=== PATIENT | female | born 1980 | race Caucasian/White ===

== ENCOUNTER 2018-07-27 19:13 | Emergency (ER) | payer OTHER, MEDICAID ==
[2018-07-27] MEDS ORDERED: Metoclopramide 10 MG/2 ML SDV IVPUSH ONE (20:33)
[2018-07-27] MEDS ORDERED: Acetaminophen 1,000 MG in Premix Bag 1 BAG IV ONE (20:33)
[2018-07-27] MEDS ORDERED: Ketorolac 30 MG/ML SDV IVPUSH ONE (20:33)
[2018-07-27] MEDS ORDERED: diphenhydrAMINE 50 MG/ML SDV IVPUSH ONE (20:34)
[2018-07-27] MEDS ORDERED: Sodium Chloride 0.9% 1,000 ML IV SCH (20:45)
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
== END 2018-07-27 22:20 | disposition home or self-care (01) ==
LOC: FB.ED 19:13
DX: G43.009 Migraine without aura, not intractable, without status migrainosus (principal); I73.00 Raynaud's syndrome without gangrene; M05.79 Rheumatoid arthritis with rheumatoid factor of multiple sites without organ or systems involvement; K02.9 Dental caries, unspecified; E66.01 Morbid (severe) obesity due to excess calories; Q79.6 Ehlers-Danlos syndromes; H20.9 Unspecified iridocyclitis; H93.12 Tinnitus, left ear; F45.8 Other somatoform disorders; I10 Essential (primary) hypertension; F17.210 Nicotine dependence, cigarettes, uncomplicated; Z91.018 Allergy to other foods; Z88.8 Allergy status to other drugs, medicaments and biological substances; Z79.899 Other long term (current) drug therapy
CPT/HCPCS: 70450; 70486; 96361; 96374; 96375; 99284; J0131; J1200; J1885; J2765; J7030

== ENCOUNTER 2018-08-02 19:47 | Emergency (ER) | payer MEDICAID, OTHER ==
[2018-08-02] MEDS ORDERED: Ketorolac 60 MG/2 ML SDV IM ONE (19:58)
[2018-08-02] MEDS ORDERED: Aspirin 81 MG Tab.Chew PO ONE (19:58)
--- NOTE | 2018-08-02 19:59 | EDM.PDOC ---
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 Pt could not sleep for 10 days. She was diagnosed with sleep apnea a few years ago but was denied a CPAP machine by her insurance in [place]. Pt was seen recently in the ED for same, when her D Dimer was elevated. PE was ruled out at that time. No N/V/D no dizziness, no diaphoresis. Pt rated the chest pain as 10/10. Pt does smoke, but does not drink. Pt denies . Pt locates her pain at the middle of her chest, which is not radiating. Described the pain as burning. No other acute medical. BP 141/80 RR 20 Pulse ox 100% on RA Pulse 72 Temp 36.4 Onset Date: 08/01/18 Onset Time: 07:00 Duration: Intermittent Location: Reports: Chest Quality: Reports: Dull Severity: Moderate (10/10) Improves with: Reports: Rest Worsens with: Reports: Movement Context: Reports: Other (CAD risk factors) mid chest Pain Score (Numeric/FACES): 10 - Related Data Allergies Allergy/AdvReac Type Severity Reaction Status Date / Time baclofen Allergy Hives Verified 08/02/18 21:43 haloperidol [From Haldol] Allergy Hives Verified 08/02/18 21:43 iodamide Allergy Anaphylactic Verified 08/02/18 21:43 Shock lidocaine Allergy Blisters Verified 08/02/18 21:43 metformin Allergy Hypotension Verified 08/02/18 21:43 [email or web address] Allergy Anaphylactic Verified 08/02/18 21:43 [From Botox] Shock Home Meds: Home Meds Celecoxib [CeleBREX] 200 mg PO DAILY 05/25/18 [History] Cyanocobalamin (Vitamin B12) [Vitamin B12] 1,000 mg PO DAILY 05/25/18 [History] DULoxetine HCl [Cymbalta] 60 mg PO BID 05/25/18 [History] Ketorolac Tromethamine/Pf [Acuvail 0.45% Ophth Solution] 0.5 mg EYEBOTH QID 05/31 [History] Topiramate [Topamax] 125 mg PO 08 05/25/18 [History] cloNIDine [Catapres] 0.3 mg PO BID 05/25/18 [History] hydrOXYzine pamoate [Vistaril] 50 mg PO Q8HR PRN 05/25/18 [History] methylPREDNISolone Sod Succ [Solu-MEDROL] 4 mg PO ASDIRECTED 05/25/18 [History] tiZANidine HCl [Tizanidine HCl] 4 mg PO BID 05/25/18 [History] Pregabalin [Lyrica] 75 mg PO BID 06/12/18 [History] Topiramate 50 mg PO 12 06/12/18 [History] Topiramate 150 mg PO 21 06/12/18 [History] Past Medical History Cardiovascular History: Reports: Hypertension Gastrointestinal History: Reports: Other (See Below) (Cholecystectomy 2009) Genitourinary History: Reports: Other (See Below) (Hysterectomy one oophorectomy 2015) HEALTH SAFETY SPECIALIST History: Reports: Other HEALTH SAFETY SPECIALIST History: Musculoskeletal History: Reports: RA, Other (See Below) (Left arthroscopies with meniscectomy) Neurological History: Reports: Seizure Psychiatric History: Reports: Anxiety Endocrine/Metabolic History: Reports: Obesity/BMI 30+ Immunologic History: Reports: Immunosuppression Social & Family History - Family History Family Medical History: Noncontributory - Caffeine Use Caffeine Use: Reports: Energy Drinks, Soda - Living Situation & Occupation Living situation: Reports: ED ROS GENERAL - Review of Systems Review Of Systems: See Below Constitutional: Reports: Malaise, Weight Gain HEENT: Reports: No Symptoms Respiratory: Reports: Pleuritic Chest Pain Cardiovascular: Reports: Chest Pain Endocrine: Reports: No Symptoms GI/Abdominal: Reports: No Symptoms : Reports: No Symptoms Musculoskeletal: Reports: Muscle Pain Skin: Reports: No Symptoms Neurological: Reports: No Symptoms Psychiatric: Reports: No Symptoms Hematologic/Lymphatic: Reports: No Symptoms Immunologic: Reports: No Symptoms ED EXAM, GENERAL - Physical Exam Exam: See Below Exam Limited By: No Limitations General Appearance: Alert, Mild Distress, Obese (morbid obese) Eye Exam: Bilateral Eye: Normal Inspection Ears: Normal External Exam Ear Exam: Bilateral Ear: Auricle Normal Nose: Normal Inspection, Normal Mucosa, No Blood Throat/Mouth: Normal Lips, Normal Gums, Normal Voice, No Airway Compromise Head: Atraumatic, Normocephalic Neck: Normal Inspection, Supple, Non-Tender, Full Range of Motion Respiratory/Chest: No Respiratory Distress, Lungs Clear, Normal Breath Sounds, Chest Non-Tender Cardiovascular: Normal Peripheral Pulses, Regular Rate, Rhythm, No Edema, No Gallop, No JVD, No Murmur, No Rub Peripheral Pulses: 1+: Brachial (L) GI/Abdominal: Normal Bowel Sounds, Soft, Non-Tender, No Organomegaly, No Abnormal Bruit, No Mass, Pelvis Stable (Female) Exam: Deferred Rectal (Female) Exam: Deferred Back Exam: Normal Inspection, Full Range of Motion Extremities: Normal Inspection, Normal Range of Motion, Non-Tender, No Pedal Edema, Normal Capillary Refill Neurological: Alert, Oriented, CN II-XII Intact, Normal Cognition, Normal Gait, No Motor/Sensory Deficits Psychiatric: Normal Affect, Normal Mood Skin Exam: Warm, Dry, Intact, Normal Color, No Rash Lymphatic: No Adenopathy EKG INTERPRETATION EKG Date: 08/02/18 Time: 20:00 Rhythm: NSR Rate (Beats/Min): 70 [place]: Normal P-Wave: Present QRS: Normal ST-T: Normal QT: Normal Comparison: NA - No Prior EKG Course - Vital Signs Text/Narrative:: 38 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 Pt could not sleep for 10 days. She was diagnosed with sleep apnea a few years ago but was denied a CPAP machine by her insurance in [place]. Pt was seen recently in the ED for same, when her D Dimer was elevated. PE was ruled out at that time. No N/V/D no dizziness, no diaphoresis. Pt rated the chest pain as 10/10. Pt does smoke, but does not drink. Pt denies . Pt locates her pain at the middle of her chest, which is not radiating. Described the pain as burning. No other acute medical. BP 141/80 RR 20 Pulse ox 100% on RA Pulse 72 Temp 36.4 PE: Obese 38 y.o.w.f with Chest pain and epigastric pain Imaging: Not indicated Labs: D Dimer 0.5 CBC, BMP nl UDS pos for benzos and and THC products. Troponin 0.017 UHC < 0.1 Impression: Sleep apnea, morbid obesity, atypical chest pain. Insomnia Tx: ASA, Maalox, Toradol, NTG Reexam: 100% improved Plan: D/C with instructions Last Recorded V/S: Last Vital Signs Temp 36.4 C 08/02/18 19:50 Pulse 72 08/02/18 19:50 Resp 20 08/02/18 19:50 BP 141/80 H 08/02/18 19:50 Pulse Ox 100 08/02/18 19:50 - Orders/Labs/Meds Orders: Active Orders 24 hr Category Date Time Status EKG Documentation Completion [RC] ASDIRECTED Care 08/02/18 19:57 Active EKG 12 Lead [EK] Routine Ther 08/02/18 19:57 Ordered Labs: Laboratory Tests 08/02/18 08/02/18 08/02/18 Range/Units 20:20 20:20 20:20 WBC 12.7 H (4.5-12.0) X10-3/uL RBC 4.70 (3.23-5.20) x10(6)uL Hgb 13.6 (11.5-15.5) g/dL Hct 41.4 (30.0-51.3) % MCV 88.1 (80-96) fL MCH 28.9 (27.7-33.6) pg MCHC 32.8 (32.2-35.4) g/dL RDW 12.0 (11.5-15.5) % Plt Count 233 (125-369) X10(3)uL MPV 9.4 (7.4-10.4) fL Neut % (Auto) 61.0 (46-82) % Lymph % (Auto) 26.4 (13-37) % [place] % (Auto) 7.0 (4-12) % Eos % (Auto) 5 (1.0-5.0) % Baso % (Auto) 1 (0-2) % Neut # (Auto) 7.8 (1.6-8.3) # Lymph # (Auto) 3.3 (0.6-5.0) # [place] # (Auto) 0.9 (0.0-1.3) # Eos # (Auto) 0.6 (0.0-0.8) # Baso # (Auto) 0.1 (0.0-0.2) # D-Dimer, Quantitative (0.0-0.59) mg/LFEU Sodium 139 (135-145) mmol/L Potassium 3.9 (3.5-5.3) mmol/L Chloride 103 (100-110) mmol/L Carbon Dioxide 26 (21-32) mmol/L BUN 14 (7-18) mg/dL Creatinine 1.0 (0.55-1.02) mg/dL Est Cr Clr Drug Dosing TNP Estimated GFR (MDRD) > 60 (>60) BUN/Creatinine Ratio 14.0 (9-20) Glucose 100 (80-116) mg/dL Calcium 9.3 (8.6-10.2) mg/dL Troponin I < 0.017 L (<0.017-0.056) ng/mL HCG, Quant (<5) mIU/mL Urine Color (YELLOW) Urine Appearance (CLEAR) Urine pH (5.0-6.5) Ur Specific [place] (1.010-1.025) Urine Protein (NEGATIVE) mg/dL Urine Glucose (UA) (NEGATIVE) mg/dL Urine Ketones (NEGATIVE) mg/dL Urine Occult Blood (NEGATIVE) Urine Nitrite (NEGATIVE) Urine Bilirubin (NEGATIVE) Urine Urobilinogen (NEGATIVE) mg/dL Ur Leukocyte Esterase (NEGATIVE) Urine RBC (0) Urine WBC (0) Ur Squamous Epith Cells (NS,R,O) Amorphous Sediment Urine Bacteria (NS) Urine Opiates Screen (NEGATIVE) Ur Oxycodone Screen (NEGATIVE) Ur Propoxyphene Screen (NEGATIVE) Ur Barbituates Screen (NEGATIVE) Ur Tricyclics Screen (NEGATIVE) Ur Phencyclidine Scrn (NEGATIVE) Ur Amphetamine Screen (NEGATIVE) Urine MDMA Screen (NEGATIVE) U Benzodiazepines Scrn (NEGATIVE) U Cocaine Metab Screen (NEGATIVE) U Marijuana (THC) Screen (NEGATIVE) 08/02/18 08/02/18 08/02/18 Range/Units 20:20 20:20 21:15 WBC (4.5-12.0) X10-3/uL RBC (3.23-5.20) x10(6)uL Hgb (11.5-15.5) g/dL Hct (30.0-51.3) % MCV (80-96) fL MCH (27.7-33.6) pg MCHC (32.2-35.4) g/dL RDW (11.5-15.5) % Plt Count (125-369) X10(3)uL MPV (7.4-10.4) fL Neut % (Auto) (46-82) % Lymph % (Auto) (13-37) % [place] % (Auto) (4-12) % Eos % (Auto) (1.0-5.0) % Baso % (Auto) (0-2) % Neut # (Auto) (1.6-8.3) # Lymph # (Auto) (0.6-5.0) # [place] # (Auto) (0.0-1.3) # Eos # (Auto) (0.0-0.8) # Baso # (Auto) (0.0-0.2) # D-Dimer, Quantitative 0.35 (0.0-0.59) mg/LFEU Sodium (135-145) mmol/L Potassium (3.5-5.3) mmol/L Chloride (100-110) mmol/L Carbon Dioxide (21-32) mmol/L BUN (7-18) mg/dL Creatinine (0.55-1.02) mg/dL Est Cr Clr Drug Dosing Estimated GFR (MDRD) (>60) BUN/Creatinine Ratio (9-20) Glucose (80-116) mg/dL Calcium (8.6-10.2) mg/dL Troponin I (<0.017-0.056) ng/mL HCG, Quant < 1 L (<5) mIU/mL Urine Color Yellow (YELLOW) Urine Appearance Slightly cloudy (CLEAR) Urine pH 7.0 H (5.0-6.5) Ur Specific [place] 1.015 (1.010-1.025) Urine Protein Negative (NEGATIVE) mg/dL Urine Glucose (UA) Normal (NEGATIVE) mg/dL Urine Ketones Negative (NEGATIVE) mg/dL Urine Occult Blood Negative (NEGATIVE) Urine Nitrite Negative (NEGATIVE) Urine Bilirubin Negative (NEGATIVE) Urine Urobilinogen 1 H (NEGATIVE) mg/dL Ur Leukocyte Esterase Small H (NEGATIVE) Urine RBC 0-5 (0) Urine WBC 0-5 (0) Ur Squamous Epith Cells Moderate H (NS,R,O) Amorphous Sediment Moderate Urine Bacteria Rare H (NS) Urine Opiates Screen (NEGATIVE) Ur Oxycodone Screen (NEGATIVE) Ur Propoxyphene Screen (NEGATIVE) Ur Barbituates Screen (NEGATIVE) Ur Tricyclics Screen (NEGATIVE) Ur Phencyclidine Scrn (NEGATIVE) Ur Amphetamine Screen (NEGATIVE) Urine MDMA Screen (NEGATIVE) U Benzodiazepines Scrn (NEGATIVE) U Cocaine Metab Screen (NEGATIVE) U Marijuana (THC) Screen (NEGATIVE) 08/02/18 Range/Units 21:15 WBC (4.5-12.0) X10-3/uL RBC (3.23-5.20) x10(6)uL Hgb (11.5-15.5) g/dL Hct (30.0-51.3) % MCV (80-96) fL MCH (27.7-33.6) pg MCHC (32.2-35.4) g/dL RDW (11.5-15.5) % Plt Count (125-369) X10(3)uL MPV (7.4-10.4) fL Neut % (Auto) (46-82) % Lymph % (Auto) (13-37) % [place] % (Auto) (4-12) % Eos % (Auto) (1.0-5.0) % Baso % (Auto) (0-2) % Neut # (Auto) (1.6-8.3) # Lymph # (Auto) (0.6-5.0) # [place] # (Auto) (0.0-1.3) # Eos # (Auto) (0.0-0.8) # Baso # (Auto) (0.0-0.2) # D-Dimer, Quantitative (0.0-0.59) mg/LFEU Sodium (135-145) mmol/L Potassium (3.5-5.3) mmol/L Chloride (100-110) mmol/L Carbon Dioxide (21-32) mmol/L BUN (7-18) mg/dL Creatinine (0.55-1.02) mg/dL Est Cr Clr Drug Dosing Estimated GFR (MDRD) (>60) BUN/Creatinine Ratio (9-20) Glucose (80-116) mg/dL Calcium (8.6-10.2) mg/dL Troponin I (<0.017-0.056) ng/mL HCG, Quant (<5) mIU/mL Urine Color (YELLOW) Urine Appearance (CLEAR) Urine pH (5.0-6.5) Ur Specific [place] (1.010-1.025) Urine Protein (NEGATIVE) mg/dL Urine Glucose (UA) (NEGATIVE) mg/dL Urine Ketones (NEGATIVE) mg/dL Urine Occult Blood (NEGATIVE) Urine Nitrite (NEGATIVE) Urine Bilirubin (NEGATIVE) Urine Urobilinogen (NEGATIVE) mg/dL Ur Leukocyte Esterase (NEGATIVE) Urine RBC (0) Urine WBC (0) Ur Squamous Epith Cells (NS,R,O) Amorphous Sediment Urine Bacteria (NS) Urine Opiates Screen Negative (NEGATIVE) Ur Oxycodone Screen Negative (NEGATIVE) Ur Propoxyphene Screen Negative (NEGATIVE) Ur Barbituates Screen Negative (NEGATIVE) Ur Tricyclics Screen Negative (NEGATIVE) Ur Phencyclidine Scrn Negative (NEGATIVE) Ur Amphetamine Screen Negative (NEGATIVE) Urine MDMA Screen Negative (NEGATIVE) U Benzodiazepines Scrn Positive H (NEGATIVE) U Cocaine Metab Screen Negative (NEGATIVE) U Marijuana (THC) Screen Positive H (NEGATIVE) Meds: Medications Discontinued Medications Generic Name Dose Route Start Last Admin Trade Name Freq PRN Reason Stop Dose Admin Al Hydroxide/Mg Hydroxide 50 ml 08/02/18 22:23 08/02/18 22:29 Mag-Al Susp PO 08/02/18 22:24 50 ml ONETIME ONE Administration Aspirin 324 mg 08/02/18 19:58 08/02/18 20:14 Aspirin PO 08/02/18 19:59 324 mg ONETIME ONE Administration Sodium Chloride 1,000 mls @ 125 mls/hr 08/02/18 21:00 08/02/18 21:20 Normal Saline IV 125 mls/hr ASDIRECTED GERALD Administration Ketorolac Tromethamine 60 mg 08/02/18 19:58 08/02/18 20:12 Toradol IM 08/02/18 19:59 60 mg ONETIME ONE Administration Morphine Sulfate 4 mg 08/02/18 21:27 08/02/18 21:41 Morphine IVPUSH 08/02/18 21:28 Not Given ONETIME ONE Morphine Sulfate Confirm 08/02/18 21:34 08/02/18 22:04 Morphine Administered 08/02/18 21:35 Not Given Dose 4 mg .ROUTE .STK-MED ONE Morphine Sulfate 4 mg 08/02/18 21:36 08/02/18 21:37 Morphine IVPUSH 08/02/18 21:37 4 mg ONETIME ONE Administration Morphine Sulfate 2 mg 08/02/18 22:02 08/02/18 22:07 Morphine IVPUSH 08/02/18 22:03 2 mg ONETIME ONE Administration Nitroglycerin 1 gm 08/02/18 22:09 08/02/18 22:19 Nitro-Bid 2% TOP 08/02/18 22:10 1 gm ONETIME STA Administration Departure - Departure Time of Disposition: 23:10 Disposition: Home, Self-Care 01 Condition: Good Clinical Impression: Sleep apnea in adult, Morbid (severe) obesity due to excess calories, Atypical chest pain Referrals: 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 If you would find a pulm specialist would be best. Please come back if your symptoms get worse acutely. - My Orders Last 24 Hours: My Active Orders 08/02/18 19:57 EKG Documentation Completion [RC] ASDIRECTED EKG 12 Lead [EK] Routine - Assessment/Plan Last 24 Hours: My Active Orders 08/02/18 19:57 EKG Documentation Completion [RC] ASDIRECTED EKG 12 Lead [EK] Routine
[2018-08-02] MEDS ORDERED: Sodium Chloride 0.9% 1,000 ML IV SCH (21:00)
[2018-08-02] MEDS ORDERED: Morphine 4 MG/ML Syringe IVPUSH ONE (21:27)
[2018-08-02] MEDS ORDERED: Morphine 2 MG/ML Syringe ONE (21:34)
[2018-08-02] MEDS ORDERED: Morphine 2 MG/ML Syringe IVPUSH ONE ×2 (21:36→22:02)
[2018-08-02] MEDS ORDERED: Nitroglycerin 2% Oint 1 GM UD Packet TOP STA (22:09)
[2018-08-02] MEDS ORDERED: Aluminum Hydroxide/Magnesium Hydroxide Susp 30 ML Cup PO ONE (22:23)
== END 2018-08-02 23:18 | disposition home or self-care (01) ==
LOC: FB.ED 19:47
DX: R07.89 Other chest pain (principal); G47.00 Insomnia, unspecified; E66.01 Morbid (severe) obesity due to excess calories; I10 Essential (primary) hypertension; F17.210 Nicotine dependence, cigarettes, uncomplicated; F41.9 Anxiety disorder, unspecified; G47.30 Sleep apnea, unspecified; Z88.8 Allergy status to other drugs, medicaments and biological substances; Z79.899 Other long term (current) drug therapy; Z68.41 Body mass index [BMI] 40.0-44.9, adult
CPT/HCPCS: 36415; 80048; 80305; 81001; 84484; 84702; 85025; 85379; 93005; 96361; 96372; 96374; 96376; 99285; A9270; J1885; J2270; J7030

== ENCOUNTER 2018-11-15 09:18 | Emergency (ER) | payer OTHER ==
[2018-11-15] MEDS ORDERED: Aspirin 81 MG Tab.Chew PO ONE (09:30)
[2018-11-15] MEDS ORDERED: Morphine 2 MG/ML Syringe IVPUSH ONE (12:08)
[2018-11-15] MEDS ORDERED: Nitroglycerin 2% Oint 1 GM UD Packet TOP ONE (15:13)
--- NOTE | 2018-11-15 15:57 | US ---
INDICATION: Rule out DVT. DUPLEX ULTRASOUND, BILATERAL LOWER EXTREMITY VEINS: Utilizing 2-D real time, duplex Doppler spectral analysis and color flow imaging, examination of the right and left lower extremity veins, including the common femoral veins, proximal greater saphenous veins, proximal deep femoral veins, proximal femoral veins, mid femoral veins, distal femoral veins, popliteal veins, posterior tibial veins, anterior tibial veins, and peroneal veins, revealed no evidence of deep venous thrombosis or obstruction. Compression views showed no abnormal lack of compression to suggest thrombosis. No evidence of incompetence of the valves was identified. IMPRESSION: Duplex ultrasound, right and left lower extremity veins, shows no evidence of deep venous thrombosis or incompetence. Report was called to Coby Cortes DO at 1430 hours on 11/15/18. [facility]
--- NOTE | 2018-11-15 16:02 | CR ---
INDICATION: Chest pain. CHEST: Two AP upright views of the chest were obtained 11/15/18. Evidence of exogenous obesity is noted. The heart is not enlarged and appears similar to PA view of 05/25/18. A definite active infiltrate or effusion was not identified. Visualization is less than ideal with an AP view with this sized patient, however. PA and lateral views are recommended for further evaluation, therefore. Overlying EKG leads are noted. IMPRESSION: 1. No definite acute process. 2. Exogenous obesity. 3. PA and lateral views of the chest may be helpful. Report was given by phone to Dr. Cortes at approximately 1500 hours on 11/15/18. [facility]
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
[2018-11-15] MEDS ORDERED: Ondansetron 4 MG/2 ML SDV IVPUSH ONE (17:01)
[2018-11-15] MEDS ORDERED: Sodium Chloride 0.9% 10 ML Syringe FLUSH PRN (17:05)
== END 2018-11-15 17:17 ==
LOC: FB.ED 09:18
DX: R07.9 Chest pain, unspecified (principal); F17.210 Nicotine dependence, cigarettes, uncomplicated; I10 Essential (primary) hypertension; F41.9 Anxiety disorder, unspecified; D64.9 Anemia, unspecified; Z88.8 Allergy status to other drugs, medicaments and biological substances; Z88.1 Allergy status to other antibiotic agents; Z79.899 Other long term (current) drug therapy
CPT/HCPCS: 36415; 71045; 80053; 81001; 84484; 85025; 85379; 85610; 93005; 93970; 96374; 96375; 99285; A9270; J2270; J2405

== ENCOUNTER 2019-01-15 17:42 | Emergency (ER) | payer OTHER ==
[2019-01-15] MEDS ORDERED: Ketorolac 60 MG/2 ML SDV IM ONE (18:13)
[2019-01-15] MEDS ORDERED: Dexamethasone 4 MG/ML SDV IVPUSH STA (18:57)
[2019-01-15] MEDS ORDERED: Aluminum Hydroxide/Magnesium Hydroxide Susp 30 ML Cup PO STA (20:23)
--- NOTE | 2019-01-15 20:27 | EDM.PDOC ---
ED HPI GENERAL MEDICAL PROBLEM - General Chief Complaint: General Stated Complaint: ARTHRITIS PAIN Time Seen by Provider: 01/15/19 17:42 Source of Information: Reports: Patient, Family (SO) History Limitations: Reports: Physical Impairment - History of Present Illness INITIAL COMMENTS - FREE TEXT/NARRATIVE: 38 y.o.w.f with multiple medical issues, including Rheumatic arthritis, came to the ED C/O chronic shoulder pain shoulder pain, whic is getting worse. 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 No trauma. Pt has no PMD, has an appointment with a [facility] Finisher in January 27 in [place]. No physician would assistant center director narcotics. No SOB or chest pain. BP 137/64 RR 17 Pulse ox 100% on RA Pulse 73 Temp 36.9 Onset Date: 01/12/19 Onset Time: 07:00 Duration: Week(s):, Chronic, Intermittent Location: Reports: Upper Extremity, Left, Upper Extremity, Right, Generalized Quality: Reports: Ache, Burning, Dull, Pressure, Same as Previous Episode Severity: Moderate Improves with: Reports: None Worsens with: Reports: None Context: Reports: Other (multiple medical issues) Associated Symptoms: Reports: Other (multiple medical issues) knees, hip, shoulders, hands, elbows Pain Score (Numeric/FACES): 10 - Related Data Allergies Allergy/AdvReac Type Severity Reaction Status Date / Time baclofen Allergy Hives Verified 01/15/19 18:59 haloperidol [From Haldol] Allergy Hives Verified 01/15/19 18:59 iodamide Allergy Anaphylactic Verified 01/15/19 18:59 Shock lidocaine Allergy Blisters Verified 01/15/19 18:59 metformin Allergy Hypotension Verified 01/15/19 18:59 onabotulinumtoxinA Allergy Anaphylactic Verified 01/15/19 18:59 [From Botox] Shock Home Meds: Home Meds Topiramate [Topamax] 150 mg PO DAILY 05/25/18 [History] cloNIDine [Catapres] 0.3 mg PO BID 05/25/18 [History] hydrOXYzine pamoate [Vistaril] 50 mg PO TID 05/25/18 [History] tiZANidine HCl [Tizanidine HCl] 4 mg PO BID 05/25/18 [History] Pregabalin [Lyrica] 75 mg PO BID 06/12/18 [History] FLUoxetine [PROzac] 40 mg PO DAILY 11/16/18 [History] Celecoxib [CeleBREX] 200 mg PO DAILY 01/15/19 [History] Metoclopramide [Reglan] 5 mg PO BID 01/15/19 [History] PARoxetine [Paxil] 5 mg PO DAILY 01/15/19 [History] Pregabalin [Lyrica] 75 mg PO BID 01/15/19 [History] Propranolol [Inderal] 80 mg PO DAILY 01/15/19 [History] Past Medical History HEENT History: Reports: Other (See Below) Other HEENT History: tinnitis, UVitis Cardiovascular History: Reports: Hypertension, Other (See Below) Other Cardiovascular History: states that she was told that she has a heart attack but did not do anything about it. Gastrointestinal History: Reports: Other (See Below) Other Gastrointestinal History: polysplenia Genitourinary History: Reports: Urinary Incontinence BUSINESS STRATEGY MANAGER History: Reports: Other BUSINESS STRATEGY MANAGER History: Musculoskeletal History: Reports: Fracture, Osteoarthritis, RA, Other (See Below ) Other Musculoskeletal History: Acquired Demyelinating syndrome. Neurological History: Reports: Concussion, Migraines, Neuropathy, Peripheral, Seizure, TIA, Other (See Below) Other Neuro History: Arnold Chiari Malformation, states that she had many TIA's in the past. Psychiatric History: Reports: Anxiety, Panic Attack Other Psychiatric History: states that she has severe anxiety and she gets really violent as a reaction to haldol. Endocrine/Metabolic History: Reports: Obesity/BMI 30+ Hematologic History: Reports: Anemia, Iron Deficiency Immunologic History: Reports: Immunosuppression Other Dermatologic History: hx hydrodenitis suprateva - Infectious Disease History Infectious Disease History: Reports: Chicken Pox - Past Surgical History Cardiovascular Surgical History: Reports: None GI Surgical History: Reports: Cholecystectomy Female Surgical History: Reports: Hysterectomy, Salpingo-Oophorectomy, Tubal Ligation Other Female Surgeries/Procedures: hyst with 1 ovary removed. Musculoskeletal Surgical History: Reports: Arthroscopic Procedure Other Musculoskeletal Surgeries/Procedures:: L knee scope Social & Family History - Family History Family Medical History: Noncontributory Cardiac: Reports: CAD - Tobacco Use Smoking Status *Q: Current Every Day Smoker Years of Tobacco use: 6 Packs/Tins Daily: 1 - Caffeine Use Caffeine Use: Reports: Coffee Other Caffeine Use: states that she is not having coffee as much as she used to. - Recreational Drug Use Recreational Drug Type: Reports: Marijuana/Hashish, Other (see below) Other Recreational Drug Type: states that she is on medical marijuana that was advised by her PCP. States that it is not helping her at all but still on it upto this time. - Living Situation & Occupation Living situation: Reports: ED ROS GENERAL - Review of Systems Review Of Systems: See Below Constitutional: Reports: No Symptoms HEENT: Reports: No Symptoms Respiratory: Reports: No Symptoms Cardiovascular: Reports: No Symptoms Endocrine: Reports: No Symptoms GI/Abdominal: Reports: Abdominal Pain (chronic) : Reports: No Symptoms Musculoskeletal: Reports: Shoulder Pain (chronic), Muscle Pain (c) Skin: Reports: No Symptoms Neurological: Reports: No Symptoms Psychiatric: Reports: No Symptoms Hematologic/Lymphatic: Reports: No Symptoms Immunologic: Reports: No Symptoms ED EXAM, GENERAL - Physical Exam Exam: See Below Exam Limited By: Physical Impairment General Appearance: Obese (obese) Eye Exam: Bilateral Eye: Normal Inspection Ears: Normal External Exam Ear Exam: Bilateral Ear: Auricle Normal Nose: Normal Inspection, Normal Mucosa, No Blood Throat/Mouth: Normal Inspection, Normal Lips, Normal Voice, No Airway Compromise Head: Atraumatic, Normocephalic Neck: Normal Inspection, Supple, Non-Tender Respiratory/Chest: No Respiratory Distress, Lungs Clear, Normal Breath Sounds Cardiovascular: Normal Peripheral Pulses, Regular Rate, Rhythm, No Edema Peripheral Pulses: 2+: Brachial (L) GI/Abdominal: Normal Bowel Sounds, Soft, Tender (chronic GERARDO quadrat of abdomen) (Female) Exam: Deferred Rectal (Female) Exam: Deferred Back Exam: Normal Inspection Extremities: Normal Inspection, Limited Range of Motion (of shoulders, chronic) Neurological: Alert, Oriented, CN II-XII Intact, Normal Cognition, Normal Gait Psychiatric: Normal Affect, Normal Mood Skin Exam: Warm, Dry, Intact, Normal Color, No Rash Lymphatic: No Adenopathy Course - Vital Signs Text/Narrative:: 38 y.o.w.f with multiple medical issues, including Rheumatic arthritis, came to the ED C/O chronic shoulder pain shoulder pain, whic is getting worse. 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 No trauma. Pt has no PMD, has an appointment with a [facility] Finisher in January 27 in [place]. No physician would assistant center director narcotics. No SOB or chest pain. BP 137/64 RR 17 Pulse ox 100% on RA Pulse 73 Temp 36.9 PE: Morbid obese 38 y.o.w.f with worsening of chronic bilat shoulder pain, no trauma Labs/Imaging: Not indicated Impression: Multiple med issues, including chronic bilat shoulder pain with exacerbation Tx: Toradol, Decadron Reexam: Improved Plan: D/C with instructions Last Recorded V/S: Last Vital Signs Temp 36.9 C 01/15/19 18:00 Pulse 73 01/15/19 18:00 Resp 17 01/15/19 18:00 BP 137/64 01/15/19 18:00 Pulse Ox 100 01/15/19 18:00 - Orders/Labs/Meds Meds: Medications Discontinued Medications Generic Name Dose Route Start Last Admin Trade Name Freq PRN Reason Stop Dose Admin Al Hydroxide/Mg Hydroxide 30 ml 01/15/19 20:23 01/15/19 20:27 Mag-Al Susp PO 01/15/19 20:24 30 ml ONETIME STA Administration Dexamethasone 10 mg 01/15/19 18:57 01/15/19 19:12 Dexamethasone IVPUSH 01/15/19 18:58 10 mg ONETIME STA Administration Ketorolac Tromethamine 60 mg 01/15/19 18:13 01/15/19 18:22 Toradol IM 01/15/19 18:14 60 mg ONETIME ONE Administration Departure - Departure Time of Disposition: 20:26 Disposition: Home, Self-Care 01 Condition: Good Clinical Impression: Arthritis - Discharge Information Referrals: Patricia Chino NP [Primary Care Provider] - Forms: ED Department Discharge Additional Instructions: Please take your current meds, please f/u with your PMD, come back if your symptoms get worse acutely
== END 2019-01-15 20:38 | disposition home or self-care (01) ==
LOC: FB.ED 17:42
DX: I00 Rheumatic fever without heart involvement (principal); M25.512 Pain in left shoulder; M25.511 Pain in right shoulder; I10 Essential (primary) hypertension; F17.210 Nicotine dependence, cigarettes, uncomplicated; Z88.1 Allergy status to other antibiotic agents; Z79.899 Other long term (current) drug therapy
CPT/HCPCS: 96372; 96374; 99283; A9270; J1100; J1885

== ENCOUNTER 2019-05-27 19:43 | Emergency (ER) | payer MEDICAID, OTHER, SELFPAY ==
[2019-05-27] MEDS: hydrOXYzine HCl 50 MG/ML SDV IM ONE (20:14)
[2019-05-27] MEDS: Morphine 10 MG/ML SDV IM ONE (20:15)
--- NOTE | 2019-05-27 21:24 | ER ---
DATE SEEN: 05/27/2019 CHIEF COMPLAINT: Fall. HISTORY OF PRESENT ILLNESS: This is a 38-year-old female who fell yesterday at home and landed on the deck on her buttock and hit her head as well. Pain is in the back of the head, moderate to severe, along with pain in the lower back. She did not pass out. Pain has been uncontrolled today despite Tylenol and ibuprofen, which is now making her nauseous. PAST MEDICAL HISTORY: Jocelyn has a history of anxiety, obesity, depression, and rheumatoid arthritis that has been controlled previously. SOCIAL HISTORY: Noncontributory. REVIEW OF SYSTEMS: No chest pain. No vomiting. No visual disturbance. PHYSICAL EXAMINATION: GENERAL: She is not in distress. VITAL SIGNS: Normal. HEAD: Atraumatic. NECK: Supple. NEXUS Criteria negative. CHEST: Clear. LOWER BACK: There is tenderness in the lumbar spine and paraspinal muscles. EXTREMITIES: Moves extremities well. NEUROLOGIC: No focal deficits neurologically. IMPRESSION: 1. Recent fall. 2. Headache. 3. Back pain. PLAN: Morphine 10 mg IM and Vistaril 50 mg IM. I recommended ice, heat, ibuprofen, and followup in the office with PCP next week. /[id number]
== END 2019-05-27 20:34 | disposition home or self-care (01) ==
LOC: FB.ED 19:43
DX: R51 Headache (principal); M54.5 Low back pain; E66.9 Obesity, unspecified; W01.10XA Fall on same level from slipping, tripping and stumbling with subsequent striking against unspecified object, initial encounter; Y92.009 Unspecified place in unspecified non-institutional (private) residence as the place of occurrence of the external cause
CPT/HCPCS: 96372; 99284-25; J2270; J3410

== ENCOUNTER 2019-06-16 17:15 | Emergency (ER) | payer BC, MEDICAID ==
[2019-06-16] MEDS ORDERED: traMADol 50 MG Tab PO ONE (17:34)
[2019-06-16] MEDS ORDERED: Ketorolac 60 MG/2 ML SDV IM ONE (18:27)
--- NOTE | 2019-06-16 18:28 | EDM.PDOC ---
ED HPI GENERAL MEDICAL PROBLEM - General Chief Complaint: General Stated Complaint: IN PAIN, CHEST HURTS Time Seen by Provider: 06/16/19 17:20 Source of Information: Reports: Patient, Family History Limitations: Reports: No Limitations - History of Present Illness INITIAL COMMENTS - FREE TEXT/NARRATIVE: Jocelyn comes into [facility] ED with a 2 hour hx of headaches, some anterior chest pain retrosternal, and concerns about elevated BP. Headache is frontal, withou nausea, visual disturbance, or sensitivity to sound, There is some chronic associated neck pain, and known history of multilevel degenerative disc disease. Her chest pain is vague, retrosternal, and not associated with palpitations, SOB, sweats, heartburn or belching. She has been taking Naproxen for sxs. - Related Data Allergies Allergy/AdvReac Type Severity Reaction Status Date / Time baclofen Allergy Hives Verified 06/16/19 17:37 haloperidol [From Haldol] Allergy Hives Verified 06/16/19 17:37 iodamide Allergy Anaphylactic Verified 06/16/19 17:37 Shock lidocaine Allergy Blisters Verified 06/16/19 17:37 metformin Allergy Hypotension Verified 06/16/19 17:37 onabotulinumtoxinA Allergy Anaphylactic Verified 06/16/19 17:37 [From Botox] Shock Home Meds: Home Meds Topiramate [Topamax] 150 mg PO DAILY 05/25/18 [History] cloNIDine [Catapres] 0.3 mg PO BID 05/25/18 [History] hydrOXYzine pamoate [Vistaril] 50 mg PO TID 05/25/18 [History] tiZANidine HCl [Tizanidine HCl] 4 mg PO BID 05/25/18 [History] Pregabalin [Lyrica] 75 mg PO BID 06/12/18 [History] FLUoxetine [PROzac] 40 mg PO DAILY 11/16/18 [History] Celecoxib [CeleBREX] 200 mg PO DAILY 01/15/19 [History] Metoclopramide [Reglan] 5 mg PO BID 01/15/19 [History] PARoxetine [Paxil] 5 mg PO DAILY 01/15/19 [History] Pregabalin [Lyrica] 75 mg PO BID 01/15/19 [History] Propranolol [Inderal] 80 mg PO DAILY 01/15/19 [History] Past Medical History HEENT History: Reports: Other (See Below) Other HEENT History: tinnitis, UVitis Cardiovascular History: Reports: Hypertension, Other (See Below) Other Cardiovascular History: states that she was told that she has a heart attack but did not do anything about it. 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 Neurological History: Reports: Concussion, Migraines, Neuropathy, Peripheral, Seizure, TIA, Other (See Below) Other Neuro History: Arnold Chiari Malformation, states that she had many TIA's in the past. Psychiatric History: Reports: Anxiety, Panic Attack Other Psychiatric History: states that she has severe anxiety and she gets really violent as a reaction to haldol. Endocrine/Metabolic History: Reports: Obesity/BMI 30+ Hematologic History: Reports: Anemia, Iron Deficiency Immunologic History: Reports: Immunosuppression Other Dermatologic History: hx hydrodenitis suprateva - Infectious Disease History Infectious Disease History: Reports: Chicken Pox - Past Surgical History Cardiovascular Surgical History: Reports: None GI Surgical History: Reports: Cholecystectomy Female Surgical History: Reports: Hysterectomy, Salpingo-Oophorectomy, Tubal Ligation Other Female Surgeries/Procedures: hyst with 1 ovary removed. Musculoskeletal Surgical History: Reports: Arthroscopic Procedure Other Musculoskeletal Surgeries/Procedures:: L knee scope Social & Family History - Family History Family Medical History: Noncontributory Cardiac: Reports: CAD - Caffeine Use Caffeine Use: Reports: Coffee, Tea Other Caffeine Use: states that she is not having coffee as much as she used to. - Living Situation & Occupation Living situation: Reports: ED ROS GENERAL - Review of Systems Review Of Systems: Comprehensive ROS is negative, except as noted in HPI. Constitutional: Reports: Decreased Appetite HEENT: Reports: Other (frontal headache) Respiratory: Reports: No Symptoms Cardiovascular: Reports: Chest Pain (retrosternal earlier today) Endocrine: Reports: No Symptoms GI/Abdominal: Reports: No Symptoms : Reports: No Symptoms Musculoskeletal: Reports: Neck Pain, Back Pain Skin: Reports: No Symptoms Neurological: Reports: Headache Psychiatric: Reports: No Symptoms Hematologic/Lymphatic: Reports: No Symptoms Immunologic: Reports: No Symptoms ED EXAM, GENERAL - Physical Exam Exam: See Below Exam Limited By: No Limitations General Appearance: Alert, WD/WN, Mild Distress, Obese Eye Exam: Bilateral Eye: EOMI, Normal Inspection, PERRL Ears: Normal External Exam Nose: Normal Inspection Throat/Mouth: Normal Lips, Normal Oropharynx, Normal Voice, No Airway Compromise , Other (poor hygiene) Head: Normocephalic Neck: Normal Inspection, Limited Range of Motion, Tender Midline Respiratory/Chest: Lungs Clear Cardiovascular: Regular Rate, Rhythm, No Murmur GI/Abdominal: Normal Bowel Sounds, Soft, Non-Tender, No Organomegaly, No Distention, No Mass (Female) Exam: Deferred Rectal (Female) Exam: Deferred Back Exam: Vertebral Tenderness (multiple levels extending from c spine to mid thoracic spine ) Extremities: Normal Inspection, Normal Range of Motion Neurological: Alert, Oriented, CN II-XII Intact, No Motor/Sensory Deficits Psychiatric: Flat Affect Skin Exam: Warm, Dry, Intact, Normal Color, No Rash Lymphatic: No Adenopathy Course - Vital Signs Text/Narrative:: Following assessment, I ordered a 12 lead ekg noting NSR; chest x ray normal study for age; CBC and BMP baseline for age; I administered Tramadol 100 mg with self reported lack of improvement; Toradol 60 mg IM without improvement; and eventually Hydrocodone 10/325 tab at time of discharge. There were no further interventions. Headaches are multifactorial. - Orders/Labs/Meds Orders: Active Orders 24 hr Category Date Time Status Chest 1V Frontal [CR] Stat Exams 06/16/19 17:32 Taken EKG 12 Lead [EK] Routine Ther 06/16/19 17:32 Ordered Labs: Laboratory Tests 06/16/19 06/16/19 Range/Units 17:51 17:51 WBC 9.0 (4.5-12.0) X10-3/uL RBC 4.89 (3.23-5.20) x10(6)uL Hgb 13.3 (11.5-15.5) g/dL Hct 40.3 (30.0-51.3) % MCV 82.4 (80-96) fL MCH 27.1 L (27.7-33.6) pg MCHC 32.9 (32.2-35.4) g/dL RDW 13.2 (11.5-15.5) % Plt Count 278 (125-369) X10(3)uL MPV 8.7 (7.4-10.4) fL Neut % (Auto) 56.4 (46-82) % Lymph % (Auto) 32.6 (13-37) % Beckham % (Auto) 6.2 (4-12) % Eos % (Auto) 4 (1.0-5.0) % Baso % (Auto) 1 (0-2) % Neut # (Auto) 5.0 (1.6-8.3) # Lymph # (Auto) 2.9 (0.6-5.0) # Beckham # (Auto) 0.6 (0.0-1.3) # Eos # (Auto) 0.4 (0.0-0.8) # Baso # (Auto) 0.1 (0.0-0.2) # Sodium 139 (135-145) mmol/L Potassium 4.7 (3.5-5.3) mmol/L Chloride 102 (100-110) mmol/L Carbon Dioxide 30 (21-32) mmol/L BUN 14 (7-18) mg/dL Creatinine 1.1 H (0.55-1.02) mg/dL Est Cr Clr Drug Dosing TNP Estimated GFR (MDRD) 56 L (>60) BUN/Creatinine Ratio 12.7 (9-20) Glucose 84 (80-116) mg/dL Calcium 9.5 (8.6-10.2) mg/dL Meds: Medications Discontinued Medications Generic Name Dose Route Start Last Admin Trade Name Nadira PRN Reason Stop Dose Admin Hydrocodone Bitart/Acetaminophen 1 tab 06/16/19 19:03 06/16/19 19:14 [place] 325-10 Mg PO 06/16/19 19:04 1 tab ONETIME ONE Administration Ketorolac Tromethamine 60 mg 06/16/19 18:27 06/16/19 18:40 Toradol IM 06/16/19 18:28 60 mg ONETIME ONE Administration Tramadol HCl 100 mg 06/16/19 17:34 06/16/19 17:42 Ultram PO 06/16/19 17:35 100 mg ONETIME ONE Administration Departure - Departure Time of Disposition: 19:45 Disposition: Home, Self-Care 01 Condition: Fair Clinical Impression: Chronic daily headache - Discharge Information *PRESCRIPTION DRUG MONITORING PROGRAM REVIEWED*: Not Applicable *COPY OF PRESCRIPTION DRUG MONITORING REPORT IN PATIENT FIDENCIO: Not Applicable Instructions: How to Take Your Blood Pressure, Preventing Hypertension, Hypertension Referrals: PCP,None [Primary Care Provider] - Forms: ED Department Discharge Sepsis Event Note - Focused Exam Date Exam was Performed: 06/16/19 Time Exam was Performed: 19:52 - Problem List & Annotations (1) Chronic daily headache SNOMED Code(s): 202133084071 Code(s): R51 - HEADACHE Status: Acute Current Visit: Yes Annotation/ Comment:: I suggested rest, activity as tolerated, and follow up with PCP. - Problem List Review Problem List Initiated/Reviewed/Updated: Yes - My Orders Last 24 Hours: My Active Orders 06/16/19 17:32 Chest 1V Frontal [CR] Stat EKG 12 Lead [EK] Routine - Assessment/Plan Last 24 Hours: My Active Orders 06/16/19 17:32 Chest 1V Frontal [CR] Stat EKG 12 Lead [EK] Routine Plan: Follow up with PCP.
[2019-06-16] MEDS ORDERED: Acetaminophen/HYDROcodone 325-10 MG Tab PO ONE (19:03)
== END 2019-06-16 19:30 | disposition home or self-care (01) ==
LOC: FB.ED 17:15
DX: R51 Headache (principal); I10 Essential (primary) hypertension; F41.9 Anxiety disorder, unspecified; Z79.899 Other long term (current) drug therapy; E66.9 Obesity, unspecified; Z98.51 Tubal ligation status; Z90.49 Acquired absence of other specified parts of digestive tract; Z90.710 Acquired absence of both cervix and uterus; Z88.8 Allergy status to other drugs, medicaments and biological substances
CPT/HCPCS: 36415; 71045; 80048; 85025; 93005; 93010; 96372; 99284; 99285; A9270; J1885

== ENCOUNTER 2019-06-27 00:02 | Emergency (ER) | payer SELFPAY ==
[2019-06-27] MEDS ORDERED: hydrALAZINE 50 MG Tab PO STA ×2 (01:11→02:19)
--- NOTE | 2019-06-27 01:13 | EDM.PDOC ---
ED HPI GENERAL MEDICAL PROBLEM - General Stated Complaint: BLOOD PRESSURE Time Seen by Provider: 06/27/19 00:45 Source of Information: Reports: Patient History Limitations: Reports: No Limitations - History of Present Illness INITIAL COMMENTS - FREE TEXT/NARRATIVE: pt with know hypertension , states this evening she develop CP, not with exertion retrosternal , associated with elevated BP , BP noted to be >220, , on arrival in the ER BP has reduced to 160 ( after use of clonidine) , still complaining of chest pain Onset: Today Onset Date: 06/26/19 Duration: Heavy Location: Reports: Chest Quality: Reports: Ache Severity: Mild Improves with: Reports: Other Worsens with: Reports: Movement Associated Symptoms: Reports: Headaches Treatments PROGRAM FACILITATOR: Reports: Other (see below) (took clonidine and propranol before coming to ER) Midsternal chest & posterior headache Pain Score (Numeric/FACES): 10 - Related Data Allergies Allergy/AdvReac Type Severity Reaction Status Date / Time baclofen Allergy Hives Verified 06/16/19 17:37 haloperidol [From Haldol] Allergy Hives Verified 06/16/19 17:37 iodamide Allergy Anaphylactic Verified 06/16/19 17:37 Shock lidocaine Allergy Blisters Verified 06/16/19 17:37 metformin Allergy Hypotension Verified 06/16/19 17:37 onabotulinumtoxinA Allergy Anaphylactic Verified 06/16/19 17:37 [From Botox] Shock tramadol Allergy Hives Verified 06/27/19 00:25 Home Meds: Home Meds cloNIDine [Catapres] 0.3 mg PO BID 05/25/18 [History] hydrOXYzine pamoate [Vistaril] 50 mg PO TID PRN 05/25/18 [History] tiZANidine HCl [Tizanidine HCl] 4 mg PO BID 05/25/18 [History] FLUoxetine [PROzac] 40 mg PO DAILY 11/16/18 [History] Celecoxib [CeleBREX] 200 mg PO DAILY 01/15/19 [History] Metoclopramide [Reglan] 5 mg PO BID PRN 01/15/19 [History] PARoxetine [Paxil] 5 mg PO DAILY 01/15/19 [History] Pregabalin [Lyrica] 150 mg PO BID 01/15/19 [History] Propranolol [Inderal] 80 mg PO BID 01/15/19 [History] Spironolactone [Aldactone] 100 mg PO DAILY #30 tablet 06/27/19 [Rx] Past Medical History HEENT History: Reports: Other (See Below) Other HEENT History: tinnitis, UVitis Cardiovascular History: Reports: Hypertension, Other (See Below) Other Cardiovascular History: states that she was told that she has a heart attack but did not do anything about it. Gastrointestinal History: Reports: Other (See Below) Other Gastrointestinal History: polysplenia Genitourinary History: Reports: Urinary Incontinence GLASS ENGRAVER History: Reports: Other GLASS ENGRAVER History: Musculoskeletal History: Reports: Fracture, Osteoarthritis, RA, Other (See Below ) Other Musculoskeletal History: Acquired Demyelinating syndrome. Neurological History: Reports: Concussion, Migraines, Neuropathy, Peripheral, Seizure, TIA, Other (See Below) Other Neuro History: Arnold Chiari Malformation, states that she had many TIA's in the past. Psychiatric History: Reports: Anxiety, Panic Attack Other Psychiatric History: states that she has severe anxiety and she gets really violent as a reaction to haldol. Endocrine/Metabolic History: Reports: Obesity/BMI 30+ Hematologic History: Reports: Anemia, Iron Deficiency Immunologic History: Reports: Immunosuppression Other Dermatologic History: hx hydrodenitis suprateva - Infectious Disease History Infectious Disease History: Reports: Chicken Pox - Past Surgical History Cardiovascular Surgical History: Reports: None GI Surgical History: Reports: Cholecystectomy Female Surgical History: Reports: Hysterectomy, Salpingo-Oophorectomy, Tubal Ligation Other Female Surgeries/Procedures: hyst with 1 ovary removed. Musculoskeletal Surgical History: Reports: Arthroscopic Procedure Other Musculoskeletal Surgeries/Procedures:: L knee scope Social & Family History - Family History Family Medical History: Noncontributory Cardiac: Reports: CAD - Caffeine Use Caffeine Use: Reports: Coffee, Tea Other Caffeine Use: states that she is not having coffee as much as she used to. - Living Situation & Occupation Living situation: Reports: ED ROS GENERAL - Review of Systems Review Of Systems: See Below Constitutional: Reports: Weakness HEENT: Reports: No Symptoms Respiratory: Reports: No Symptoms, Pleuritic Chest Pain Cardiovascular: Reports: Chest Pain, Blood Pressure Problem, Lightheadedness, Palpitations Endocrine: Reports: Fatigue GI/Abdominal: Reports: No Symptoms, Abdominal Pain, Anorexia : Reports: No Symptoms Musculoskeletal: Reports: No Symptoms Skin: Reports: No Symptoms Neurological: Reports: Dizziness Hematologic/Lymphatic: Reports: No Symptoms Immunologic: Reports: No Symptoms ED EXAM, GENERAL - Physical Exam Exam: See Below Exam Limited By: No Limitations General Appearance: Alert, WD/WN, No Apparent Distress, Obese Eye Exam: Bilateral Eye: EOMI Nose: Normal Inspection, Normal Mucosa Throat/Mouth: Normal Oropharynx Neck: Normal Inspection, Supple, Non-Tender, Full Range of Motion Respiratory/Chest: Lungs Clear, Normal Breath Sounds Cardiovascular: Normal Peripheral Pulses, Regular Rate, Rhythm GI/Abdominal: Normal Bowel Sounds, Soft, Non-Tender Back Exam: Normal Inspection Extremities: Normal Inspection Neurological: Alert, Oriented, CN II-XII Intact EKG INTERPRETATION EKG Date: 06/27/19 Rhythm: NSR [place]: Normal P-Wave: Present Course - Vital Signs Last Recorded V/S: Last Vital Signs Temp 36.7 C 06/27/19 00:15 Pulse 89 06/27/19 00:15 Resp 20 06/27/19 00:15 BP 156/110 H 06/27/19 02:28 Pulse Ox 98 06/27/19 00:15 - Orders/Labs/Meds Labs: Laboratory Tests 06/27/19 06/27/19 06/27/19 Range/Units 01:20 01:20 01:20 WBC 10.6 (4.5-12.0) X10-3/uL RBC 5.66 H (3.23-5.20) x10(6)uL Hgb 15.2 (11.5-15.5) g/dL Hct 46.3 (30.0-51.3) % MCV 81.7 (80-96) fL MCH 26.8 L (27.7-33.6) pg MCHC 32.8 (32.2-35.4) g/dL RDW 13.4 (11.5-15.5) % Plt Count 351 (125-369) X10(3)uL Sodium 141 (135-145) mmol/L Potassium 4.2 (3.5-5.3) mmol/L Chloride 102 (100-110) mmol/L Carbon Dioxide 27 (21-32) mmol/L BUN 14 (7-18) mg/dL Creatinine 1.1 H (0.55-1.02) mg/dL Est Cr Clr Drug Dosing 81.59 mL/min Estimated GFR (MDRD) 56 L (>60) BUN/Creatinine Ratio 12.7 (9-20) Glucose 111 (80-116) mg/dL Calcium 10.2 (8.6-10.2) mg/dL Magnesium 1.8 (1.8-2.5) mg/dL Total Bilirubin 0.5 (0.1-1.3) mg/dL AST 19 (5-25) IU/L ALT 36 D (12-36) U/L Alkaline Phosphatase 106 (56-112) IU/L Total Protein 8.5 H (6.0-8.0) g/dL Albumin 4.4 (3.5-5.2) g/dL Globulin 4.1 g/dL Albumin/Globulin Ratio 1.1 Meds: Medications Discontinued Medications Generic Name Dose Route Start Last Admin Trade Name Freq PRN Reason Stop Dose Admin Acetaminophen 1,000 mg 06/27/19 01:14 06/27/19 01:25 Tylenol Extra Strength PO 06/27/19 01:15 1,000 mg ONETIME ONE Administration Clonidine HCl 0.2 mg 06/27/19 02:54 06/27/19 03:07 Catapres PO 06/27/19 02:55 Not Given ONETIME ONE Hydralazine HCl 50 mg 06/27/19 01:11 06/27/19 01:25 Apresoline PO 06/27/19 01:12 50 mg NOW STA Administration Hydralazine HCl 50 mg 06/27/19 02:19 06/27/19 02:28 Apresoline PO 06/27/19 02:20 50 mg NOW STA Administration Ketorolac Tromethamine 60 mg 06/27/19 02:50 06/27/19 03:03 Toradol IM 06/27/19 02:51 60 mg ONETIME ONE Administration Spironolactone 50 mg 06/27/19 02:19 06/27/19 02:28 Aldactone PO 06/27/19 02:20 50 mg ONETIME ONE Administration - Re-Assessments/Exams Free Text/Narrative Re-Assessment/Exam: 06/27/19 03:14 pt had to be given 2 doses of 50mg Hydralazine , spironolactone 50mg before BP decreased pt still complained of minute headaches Departure - Departure Time of Disposition: 03:30 Disposition: Home, Self-Care 01 Clinical Impression: Hypertensive heart disease, Severe uncontrolled hypertension, Atypical chest pain Referrals: PCP,None [Primary Care Provider] - Additional Instructions: Start spironolactone do not take same day with ibuprofen or spironolactone [place] appt with your pCP to further manage elevate BP Sepsis Event Note - Evaluation Sepsis Screening Result: No Definite Risk - Focused Exam Vital Signs: Vital Signs Temp Pulse Resp BP BP Pulse Ox 06/27/19 02:28 156/110 H 06/27/19 01:25 167/113 H 06/27/19 00:15 36.7 C 89 20 153/124 H 98 Date Exam was Performed: 06/27/19 Time Exam was Performed: 03:12
[2019-06-27] MEDS ORDERED: Acetaminophen 500 MG Tab PO ONE (01:14)
[2019-06-27] MEDS ORDERED: Spironolactone 50 MG Tab PO ONE (02:19)
[2019-06-27] MEDS ORDERED: Ketorolac 60 MG/2 ML SDV IM ONE (02:50)
[2019-06-27] MEDS ORDERED: cloNIDine 0.1 MG Tab PO ONE (02:54)
== END 2019-06-27 03:33 | disposition home or self-care (01) ==
LOC: FB.ED 00:02
DX: I11.9 Hypertensive heart disease without heart failure (principal); R07.89 Other chest pain; E66.9 Obesity, unspecified; Z79.899 Other long term (current) drug therapy; Z88.8 Allergy status to other drugs, medicaments and biological substances; Z88.1 Allergy status to other antibiotic agents; Z68.41 Body mass index [BMI] 40.0-44.9, adult
CPT/HCPCS: 36415; 80053; 83735; 85027; 93005; 93010; 96372; 99284; 99285; A9270; J1885

== ENCOUNTER 2019-07-11 15:32 | Emergency (ER) | payer SELFPAY ==
--- NOTE | 2019-07-11 15:34 | EDM.PDOC ---
ED HPI GENERAL MEDICAL PROBLEM - General Stated Complaint: BACK PAIN Time Seen by Provider: 07/11/19 15:33 Source of Information: Reports: Patient History Limitations: Reports: No Limitations - History of Present Illness INITIAL COMMENTS - FREE TEXT/NARRATIVE: 38-year-old female who reports she has a history of CRPS and has pain in her back, both elbows and her left knee associated with this. She states she has pain in these areas on the daily basis but beginning last night she reports an increase in the pain in these with sharp and earning type pain that is throbbing and is worse with movement and palpation. He rates the pain as a 10/ 10. The pain does not radiate. She reports that she was seen by her primary provider in [place] today and she had some osteopathic manipulations reports that the pain seemed to worsen after this and she reports that he did not provide her with any pain medications. She reports that she has been taking Tylenol and ibuprofen without relief of her pain. She has had no fever. She has had no chills. Nausea has been present but no vomiting. No dysuria or hematuria. No difficulty breathing above what she states is her normal problems with this. She has been eating and drinking normally. No trauma. She presents to the emergency department via private vehicle with her . There are no other associated signs or symptoms. There are no other modifying factors. Onset: Other (Ongoing pain for a long time but worse since last p.m. 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: Reports: Acetaminophen, NSAIDS (Ibuprofen) low and mid back pain Pain Score (Numeric/FACES): 10 - Related Data Allergies Allergy/AdvReac Type Severity Reaction Status Date / Time baclofen Allergy Hives Verified 06/16/19 17:37 haloperidol [From Haldol] Allergy Hives Verified 06/16/19 17:37 iodamide Allergy Anaphylactic Verified 06/16/19 17:37 Shock lidocaine Allergy Blisters Verified 06/16/19 17:37 metformin Allergy Hypotension Verified 06/16/19 17:37 naltrexone Allergy Abdominal Verified 07/11/19 15:41 Pain onabotulinumtoxinA Allergy Anaphylactic Verified 06/16/19 17:37 [From Botox] Shock tramadol Allergy Hives Verified 06/27/19 00:25 Home Meds: Home Meds cloNIDine [Catapres] 0.3 mg PO BID 05/25/18 [History] hydrOXYzine pamoate [Vistaril] 50 mg PO TID PRN 05/25/18 [History] tiZANidine HCl [Tizanidine HCl] 4 mg PO BID 05/25/18 [History] FLUoxetine [PROzac] 40 mg PO DAILY 11/16/18 [History] Celecoxib [CeleBREX] 200 mg PO DAILY 01/15/19 [History] Metoclopramide [Reglan] 5 mg PO BID PRN 01/15/19 [History] PARoxetine [Paxil] 5 mg PO DAILY 01/15/19 [History] Pregabalin [Lyrica] 150 mg PO BID 01/15/19 [History] Propranolol [Inderal] 80 mg PO BID 01/15/19 [History] Spironolactone [Aldactone] 100 mg PO DAILY #30 tablet 06/27/19 [Rx] Past Medical History HEENT History: Reports: Other (See Below) Other HEENT History: tinnitis, Uveitis Cardiovascular History: Reports: Hypertension, Other (See Below) Other Cardiovascular History: states that she was told that she has a heart attack but did not do anything about it. Apparently, review of the records from [place] by Dr. Cortes showed no evidence of DE with normal troponins. Respiratory History: Reports: Sleep Apnea Other Respiratory History: is getting cpap Gastrointestinal History: Reports: Other (See Below) Other Gastrointestinal History: polysplenia Genitourinary History: Reports: Urinary Incontinence Other ENGAGEMENT LEAD History: Musculoskeletal History: Reports: Fracture, Osteoarthritis, RA, Other (See Below ) Other Musculoskeletal History: Acquired Demyelinating syndrome. Neurological History: Reports: Concussion, Migraines, Neuropathy, Peripheral, Seizure, TIA, Other (See Below) Other Neuro History: Arnold Chiari Malformation, states that she had many TIA's in the past. Patient reports she has chronic regional pain syndrome. Psychiatric History: Reports: Anxiety, Depression, Panic Attack Other Psychiatric History: states that she has severe anxiety and she gets really violent as a reaction to haldol. Endocrine/Metabolic History: Reports: Obesity/BMI 30+ Hematologic History: Reports: Anemia, Iron Deficiency Other Dermatologic History: hx of hydradenitis supprativa - Infectious Disease History Infectious Disease History: Reports: Chicken Pox - Past Surgical History GI Surgical History: Reports: Cholecystectomy Female Surgical History: Reports: Breast Biopsy (Mass removed from left breast, benign), Hysterectomy, Salpingo-Oophorectomy, Tubal Ligation Other Female Surgeries/Procedures: hyst with 1 ovary removed. Musculoskeletal Surgical History: Reports: Arthroscopic Procedure Other Musculoskeletal Surgeries/Procedures:: L knee scope Dermatological Surgical History: Reports: Other (See Below) (Cyst removed from face on right side, benign.) Social & Family History - Family History Cardiac: Reports: CAD - Tobacco Use Smoking Status *Q: Current Every Day Smoker - Caffeine Use Caffeine Use: Reports: Coffee, Tea Other Caffeine Use: states that she is not having coffee as much as she used to. - Alcohol Use Alcohol Use History: No - Living Situation & Occupation Living situation: Reports: , with Spouse Occupation: Other (She is a [id number] mom with 3 children.) ED ROS GENERAL - Review of Systems Review Of Systems: See Below Constitutional: Reports: No Symptoms HEENT: Reports: No Symptoms Respiratory: Reports: No Symptoms Cardiovascular: Reports: No Symptoms GI/Abdominal: Reports: Nausea. Denies: Vomiting : Reports: No Symptoms Musculoskeletal: Reports: Back Pain, Joint Pain, Other (As history of present illness) Skin: Reports: No Symptoms Neurological: Reports: No Symptoms Hematologic/Lymphatic: Reports: No Symptoms Immunologic: Reports: No Symptoms ED EXAM, GENERAL - Physical Exam Exam: See Below Exam Limited By: No Limitations General Appearance: Alert, Moderate Distress (There is no respiratory distress. She does not appear to be toxic.), Obese Eye Exam: Bilateral Eye: EOMI, Normal Inspection, PERRL Ears: Normal External Exam, Hearing Grossly Normal Ear Exam: Bilateral Ear: Auricle Normal Nose: Normal Inspection, Normal Mucosa, No Blood Throat/Mouth: Normal Inspection, Normal Lips, Normal Oropharynx, Normal Voice, No Airway Compromise Head: Atraumatic, Normocephalic Neck: Normal Inspection, Supple, Non-Tender, Full Range of Motion Respiratory/Chest: No Respiratory Distress, Lungs Clear, Normal Breath Sounds, No Accessory Muscle Use, Chest Non-Tender Cardiovascular: Normal Peripheral Pulses, Regular Rate, Rhythm, No Murmur Peripheral Pulses: 2+: Radial (L), Radial (R), Dorsalis Pedis (L), Dorsalis Pedis (R) GI/Abdominal: Normal Bowel Sounds, Soft, Non-Tender, No Mass Back Exam: Normal Inspection, Other (Diffuse pain along mid and lower back. No redness. No rashes. ) Extremities: Normal Inspection, Normal Range of Motion, No Pedal Edema, Normal Capillary Refill, Other (Reports pain in both elbow joints and left knee joint. There are no effusions in any of these joints.). No: Joint Swelling, Increased Warmth, Redness Neurological: Alert, Oriented, CN II-XII Intact, Normal Cognition, No Motor/ Sensory Deficits Skin Exam: Warm, Dry, Intact, Normal Color, No Rash Course - Vital Signs Last Recorded V/S: Last Vital Signs Temp 36.5 C 07/11/19 15:32 Pulse 71 07/11/19 15:32 Resp 17 07/11/19 15:32 BP 121/99 H 07/11/19 15:32 Pulse Ox 100 07/11/19 15:32 - Orders/Labs/Meds Meds: Medications Discontinued Medications Generic Name Dose Route Start Last Admin Trade Name Nadira PRN Reason Stop Dose Admin Dexamethasone 8 mg 07/11/19 15:55 07/11/19 16:01 Dexamethasone IM 07/11/19 15:56 8 mg ONETIME ONE Administration Ketorolac Tromethamine 60 mg 07/11/19 15:55 07/11/19 16:01 Toradol IM 07/11/19 15:56 60 mg ONETIME ONE Administration - Re-Assessments/Exams Free Text/Narrative Re-Assessment/Exam: 07/11/19 15:50: Patient's vital signs are normal. Her exam shows no evidence of acute inflammation or infection. She has a long-standing history of pain in the areas that she has secondary to her reported diagnosis of CRPS. This appears to represent an exacerbation of her chronic condition and will be given Toradol 60 mg IM and Decadron 8 mg IM. I have explained to the patient that for any pain control for chronic conditions, she will need to go through her primary provider. I have told her that we would not be able to provide her with any pain control measures other than above for her chronic conditions. Departure - Departure Time of Disposition: 16:10 Disposition: Home, Self-Care 01 Condition: Good (Stable) Clinical Impression: Chronic pain syndrome, Pain, joint, multiple sites - Discharge Information Instructions: Chronic Pain, Adult Referrals: PCP,Not In Area [Primary Care Provider] - Forms: ED Department Discharge Additional Instructions: You appear to be having an exacerbation of your chronic pain. There does not appear to be any evidence of infection or acute inflammation in the areas of your pain. As we discussed, you will need to go through your primary provider for any ongoing pain control measures. We would not be able to provide you with any prescriptions pain medications for your chronic pain. You may take Tylenol and ibuprofen as needed for pain. Drink plenty of fluids. Back to the emergency department for fever, unrelenting vomiting or any other concerning sign or symptom. Sepsis Event Note - Focused Exam Vital Signs: Vital Signs Temp Pulse Resp BP Pulse Ox 07/11/19 15:32 36.5 C 71 17 121/99 H 100 Date Exam was Performed: 07/11/19 Time Exam was Performed: 16:21
[2019-07-11] MEDS ORDERED: Dexamethasone 4 MG/ML SDV IM ONE (15:55)
[2019-07-11] MEDS ORDERED: Ketorolac 60 MG/2 ML SDV IM ONE (15:55)
== END 2019-07-11 16:10 | disposition home or self-care (01) ==
LOC: FB.ED 15:32
DX: G89.4 Chronic pain syndrome (principal); M25.522 Pain in left elbow; M25.521 Pain in right elbow; M25.562 Pain in left knee; I10 Essential (primary) hypertension; E66.9 Obesity, unspecified; F32.9 Major depressive disorder, single episode, unspecified; F41.9 Anxiety disorder, unspecified; F17.200 Nicotine dependence, unspecified, uncomplicated; Z88.8 Allergy status to other drugs, medicaments and biological substances; Z88.4 Allergy status to anesthetic agent; Z79.899 Other long term (current) drug therapy; Z86.73 Personal history of transient ischemic attack (TIA), and cerebral infarction without residual deficits; Z68.41 Body mass index [BMI] 40.0-44.9, adult
CPT/HCPCS: 96372; 99283; J1100; J1885